=== PATIENT | female | born 1975 | race Caucasian/White ===

== ENCOUNTER 2016-08-01 20:18 | Emergency (ER) | payer OTHER ==
[~2016-08-01] VITALS: Ht 167.6 cm; Wt 55.3 kg
[~2016-08-01 20:18] MED LIST: NOHOMEMEDICATIONS
[2016-08-01 20:23] VITALS: BP 118/55
[2016-08-01] MEDS ORDERED: ESCITALOPRAM OX10 MG PO (20:27)
== END 2016-08-01 21:45 | disposition home or self-care (01) ==
LOC: ER 20:18
DX: S61.217A Laceration without foreign body of left little finger without damage to nail, initial encounter (principal); Z88.1 Allergy status to other antibiotic agents; Z88.8 Allergy status to other drugs, medicaments and biological substances; W26.0XXA Contact with knife, initial encounter; Y93.89 Activity, other specified; Y92.009 Unspecified place in unspecified non-institutional (private) residence as the place of occurrence of the external cause; Y99.9 Unspecified external cause status